=== PATIENT | female | born 1980 | race African-American/Black ===

== ENCOUNTER 2022-02-11 22:21 | Emergency (ER) | payer OTHER ==
[~2022-02-11] VITALS: Ht 165.1 cm; Wt 84.5 kg
[2022-02-11 22:41] VITALS: BP 133/95
== END 2022-02-12 02:50 | disposition left against medical advice (07) ==
LOC: ER 22:45
DX: Z53.21 Procedure and treatment not carried out due to patient leaving prior to being seen by health care provider (principal)